=== PATIENT | male | born 1980 | race Caucasian/White ===

== ENCOUNTER → 2016-11-26 | Outpatient (CLI) | payer BC ==
[2016-11-26 14:52] VITALS: BP 129/74; PULSE 74; RESP 16; TEMP 98.8; BMI 40.6
[2016-11-26 16:01] LABS: CH 29.8; CHCM 33.9; HCT 48.7 % (39.0-53.0); HGB 16.1 gm/dL (13.0-17.5); MCH 29.2 pg (25.0-35.0); MCV 88.3 fL (80.0-100.0); Mean Platelet Volume 7.5; RBC 5.51 m/uL (4.30-5.90); RDW 14.2 % (11.5-15.5); WBC 5.9 k/uL (3.8-10.6)
[2016-11-26 16:07] LABS: INR 1.1 (<1.1); Partial Thromboplastin Time 23.2 sec (22.0-30.0); Prothrombin Time 11.3 sec (9.0-12.0)
[2016-11-26 16:22] LABS: ALT 107 U/L (21-72); AST 65 U/L (17-59); Alkaline Phosphatase 105 U/L (38-126); Anion Gap 12 mmol/L; Blood Urea Nitrogen 13 mg/dL (9-20); Calcium 9.7 mg/dL (8.4-10.2); Carbon Dioxide 28 mmol/L (22-30); Chloride 103 mmol/L (98-107); Cholesterol 142 mg/dL (<200); Glucose 122 mg/dL (74-99); HDL Cholesterol 37 mg/dL (40-60); Iron 68 ug/dL (49-181); Non-African American GFR(MDRD) >60 (>60 ml/min/1.73 sqM); Phosphorous 3.3 mg/dL (2.5-4.5); Potassium 4.1 mmol/L (3.5-5.1); Sodium 143 mmol/L (137-145); Total Bilirubin 0.6 mg/dL (0.2-1.3); Total Protein 6.7 g/dL (6.3-8.2); Triglycerides 129 mg/dL (<150)
[2016-11-26 16:32] LABS: % Iron Saturation 19.4 % (20-50); Prealbumin 21 mg/dL (18-36); Total Iron Binding Capacity 351 ug/dL (261-462)
[2016-11-26 17:26] LABS: Vitamin B12 740 pg/mL (239-931)
[2016-11-26 19:17] LABS: Hemoglobin A1C 5.2 % (4.2-6.1)
--- NOTE | 2016-11-28 10:23 | PN ---
DATE OF SERVICE: 11/26/2016 CHIEF COMPLAINT: Follow-up sleeve gastrectomy. HISTORY OF PRESENT ILLNESS: Noble Martinez is a 36-year-old gentleman who is status post sleeve gastrectomy on 10/31/2016. He is approximately 3-1/2 weeks out. His highest weight for his 5-foot, 11-inch frame was 317 pounds. His ideal body weight is 178 pounds. Today he comes in weighing 291 pounds. He has lost 26 pounds in approximately 3 weeks. Percent excess weight loss is 19%. Body mass index is reduced from 44.3 down to 40.6. No reports of dysphagia. No reports of nausea, vomiting, with the exception of recent flu. He is tolerating his protein shakes over 90 grams. He does report chronic insomnia and troubles with sleep. He has been followed by a sleep specialist; however, he is due for re-evaluation. PHYSICAL EXAM: VITAL SIGNS: 98.8, 74, 16, 129/74; 5 feet, 11 inches, 291 pounds. Body mass index of 40.6. ABDOMEN: All incisions granulating. No palpable incisional hernias. No signs of infection. MUSCULOSKELETAL: No clubbing, cyanosis, or edema. GENERAL: Well-developed male in no acute distress. HEENT: No scleral icterus. Extraocular movements grossly intact. Moist buccal mucosa. NECK: Supple without lymphadenopathy. CHEST: Nonlabored respirations with equal bilateral excursions. CARDIOVASCULAR: Regular rate and rhythm. NEURO: No focal or lateralizing signs. Cranial nerves 2 through 12 grossly intact. ASSESSMENT: 1. Morbid obesity due to excess calories. 2. Body mass index reduced from 44.3 down to 40.6. 3. Status post sleeve gastrectomy. 4. Dietary surveillance and counseling. PLAN: 1. He reports insomnia that essentially can hurt his weight loss. Recommend evaluation at the sleep specialist. 2. In the interim, will continue with omeprazole for at least 3 months postop for pouch care. 3. Recommend maintain protein intake goal of 90 grams daily. 4. At this time, recommend continued recovery. He will not return to work until complete recovery is achieved. [facility]
[2016-11-29 19:07] LABS: Selenium 104 mcg/L (63-160)
== END | disposition home or self-care (01) ==
LOC: BARWHC3 14:11
PROVIDERS: ATTEND Surgery Plastic and Reconstructive Surgery
DX: Z48.815 Encounter for surgical aftercare following surgery on the digestive system (principal); Z71.3 Dietary counseling and surveillance; E66.01 Morbid (severe) obesity due to excess calories; Z68.41 Body mass index [BMI] 40.0-44.9, adult; Z98.84 Bariatric surgery status; Z79.899 Other long term (current) drug therapy
CPT/HCPCS: 80053; 80061; 82306; 82525; 82607; 82728; 82746; 83036; 83540; 83550; 83735; 83970; 84100; 84134; 84255; 84425; 84443; 84590; 84630; 85027; 85610; 85730; 99211

== ENCOUNTER → 2016-12-10 | Outpatient (CLI) | payer BC ==
[2016-12-10 15:30] VITALS: BP 121/74; PULSE 81; TEMP 97.4; BMI 39.6
--- NOTE | 2016-12-21 13:09 | P.PN ---
Progress Note - Text DATE OF SERVICE: 12/10/2016 CHIEF COMPLAINT: Follow-up sleeve gastrectomy. HISTORY OF PRESENT ILLNESS: Noble Martinez is a 36-year-old gentleman status post sleeve gastrectomy on 10/31/2016. His highest weight in the programs was 317 pounds. He today comes in weighing 284 pounds. He has maintained a 33-pound weight loss. No reports of nausea or vomiting. No reports of fevers or chills. He reports generalized fatigue. In fact he has history of insomnia. He had seen Dr. Lowe in the sleep center in the past. He is yet to follow up with his primary care provider as well. His body mass index has reduced from 44.3 down to 39.7. PHYSICAL EXAM: VITAL SIGNS: 97.4, 81, 121/74; 5 feet 11 inches, 284 pounds. GENERAL: Well-developed male in no acute distress. ABDOMEN: Soft, nontender. No palpable incisional hernias. No signs of infection. All incisions granulating. MUSCULOSKELETAL: No clubbing, cyanosis, or edema. HEENT: No scleral icterus. Extraocular movements grossly intact. Moist buccal mucosa. NECK: Supple without lymphadenopathy. CHEST: Nonlabored respirations with equal bilateral excursions. CARDIOVASCULAR: Regular rate and rhythm. NEURO: No focal or lateralizing signs. Cranial nerves 2 through 12 grossly intact. LABS: Previous bariatric metabolic panel was reviewed demonstrating hemoglobin normal at 16.1. Glucose was elevated at 122. Hemoglobin A1c was normal at 5.2%. Percent iron saturation was low at 19.4. Ferritin was low at 8. AST and ALT were elevated at 65 [id number] respectively. HDL was low at 37. Vitamin A was low at 30. Trace elements were within normal limits. ASSESSMENT: 1. Morbid obesity due to excess calories. 2. Body mass index reduced from 44.3 down to 39.7. 3. Status post sleeve gastrectomy. 4. Vitamin A deficiency. 5. Dyslipidemia. 6. Insomnia. 7. Dietary surveillance and counseling. PLAN: 1. His liver enzymes were reviewed and consistent with his recent surgery. Will closely evaluate in the interim. 2. He has low vitamin A. We have gone over vitamin A rich foods including vitamin A supplement. He will correct it with his nutrition including multivitamin. 3. He reports insomnia whereby evaluation at the sleep center was advised. 4. He is also due to follow up with his primary care provider. 5. I have recommended a correction of insomnia. This may also alter and effect his moderate weight loss. Thus for in the past 5 weeks he has done exceptionally well already losing over 30 pounds. 6. Recommended followup for January 2017; otherwise in a 3-month cycle.
== END | disposition home or self-care (01) ==
LOC: BARWHC3 14:33
PROVIDERS: ATTEND Surgery Plastic and Reconstructive Surgery
DX: E66.01 Morbid (severe) obesity due to excess calories (principal); Z68.39 Body mass index [BMI] 39.0-39.9, adult; Z09 Encounter for follow-up examination after completed treatment for conditions other than malignant neoplasm; Z90.3 Acquired absence of stomach [part of]; E50.9 Vitamin A deficiency, unspecified; E78.5 Hyperlipidemia, unspecified; G47.00 Insomnia, unspecified; Z71.3 Dietary counseling and surveillance
CPT/HCPCS: 99211

== ENCOUNTER → 2017-01-21 | Outpatient (CLI) | payer BC ==
[2017-01-21 13:18] VITALS: BP 123/76; PULSE 97; RESP 16; TEMP 98.1
[2017-01-21 13:38] VITALS: BMI 37.4
[2017-01-21 14:30] LABS: INR 1.1 (<1.1); Partial Thromboplastin Time 23.4 sec (22.0-30.0); Prothrombin Time 11.1 sec (9.0-12.0)
[2017-01-21 14:35] LABS: CH 30.1; CHCM 33.9; HCT 48.4 % (39.0-53.0); HDW 2.78; HGB 16.5 gm/dL (13.0-17.5); MCH 30.4 pg (25.0-35.0); MCHC 34.2 g/dL (31.0-37.0); Mean Platelet Volume 6.7; RBC 5.44 m/uL (4.30-5.90); RDW 13.6 % (11.5-15.5); WBC 5.1 k/uL (3.8-10.6)
[2017-01-21 14:45] LABS: ALT 60 U/L (21-72); AST 39 U/L (17-59); Alkaline Phosphatase 95 U/L (38-126); Anion Gap 12 mmol/L; Blood Urea Nitrogen 16 mg/dL (9-20); Calcium 10.2 mg/dL (8.4-10.2); Carbon Dioxide 29 mmol/L (22-30); Chloride 102 mmol/L (98-107); Cholesterol 149 mg/dL (<200); Glucose 115 mg/dL (74-99); HDL Cholesterol 42 mg/dL (40-60); Iron 99 ug/dL (49-181); Magnesium 2.2 mg/dL (1.6-2.3); Non-African American GFR(MDRD) >60 (>60 ml/min/1.73 sqM); Phosphorous 3.5 mg/dL (2.5-4.5); Potassium 4.5 mmol/L (3.5-5.1); Sodium 143 mmol/L (137-145); Total Bilirubin 0.7 mg/dL (0.2-1.3); Total Protein 7.2 g/dL (6.3-8.2); Triglycerides 166 mg/dL (<150)
[2017-01-21 14:55] LABS: % Iron Saturation 24.9 % (20-50); Prealbumin 22 mg/dL (18-36); Total Iron Binding Capacity 397 ug/dL (261-462)
[2017-01-21 15:48] LABS: Vitamin B12 706 pg/mL (239-931)
[2017-01-21 18:39] LABS: Hemoglobin A1C 5.3 % (4.2-6.1)
[2017-01-23 18:21] LABS: Selenium 149 mcg/L (63-160)
--- NOTE | 2017-02-21 09:31 | PN ---
DATE OF SERVICE: 01/21/2017. CHIEF COMPLAINT: Follow-up sleeve gastrectomy. HISTORY OF PRESENT ILLNESS: Noble Martinez is a 36-year-old gentleman who is status post sleeve gastrectomy of 10/31/2016. His highest weight was 317 pounds. Today he comes in weighing 284 pounds. His ideal body weight is 178 pounds. He has lost 33 pounds. Body mass index is reduced from 44.3 down to 39.7. Total BMI point reduction is 4.6. Percent excess weight loss is 28%. He denies any gastroesophageal reflux disease. In fact he has discontinued omeprazole. He is not on any medications for his blood pressure. He also reports moderate improvement of his joints. He reports that his highest lifetime weight loss thus far has been 49 pounds. PHYSICAL EXAM: VITAL SIGNS: 98.1, 97, 123/76; 5 feet 11 inches, 284 pounds. GENERAL: Well-developed male in no acute distress. ABDOMEN: Soft, nontender. No palpable incisional hernias. No signs of infection. All incisions granulating. MUSCULOSKELETAL: No clubbing, cyanosis, or edema. HEENT: No scleral icterus. Extraocular movements grossly intact. Moist buccal mucosa. NECK: Supple without lymphadenopathy. CHEST: Nonlabored respirations with equal bilateral excursions. CARDIOVASCULAR: Regular rate and rhythm. NEURO: No focal or lateralizing signs. Cranial nerves 2 through 12 grossly intact. LABS: Reviewed, demonstrating elevated glucose of 115, ferritin low at 6, triglycerides elevated at 156. The rest of bariatric labs are within normal limits. ASSESSMENT: 1. Morbid obesity due to excess calories. 2. Body mass index reduced from 44.3 down to 39.7. 3. Status post sleeve gastrectomy. 4. History of osteoarthritis, improved. 5. Hypertension improved. PLAN: 1. Recommend continued protein intake of over 75 grams daily. 2. May start exercising. 3. Also recommend start multivitamins. 4. Overall he is doing extremely well, already at 120 grams of protein daily. 5. Recommend follow-up in April 2017. [facility]
== END | disposition home or self-care (01) ==
LOC: BARWHC3 13:00
PROVIDERS: ATTEND Surgery Plastic and Reconstructive Surgery
DX: Z48.815 Encounter for surgical aftercare following surgery on the digestive system (principal); E66.01 Morbid (severe) obesity due to excess calories; Z68.39 Body mass index [BMI] 39.0-39.9, adult; Z71.3 Dietary counseling and surveillance; Z98.84 Bariatric surgery status; M19.90 Unspecified osteoarthritis, unspecified site; I10 Essential (primary) hypertension; E21.1 Secondary hyperparathyroidism, not elsewhere classified; E89.1 Postprocedural hypoinsulinemia; D50.8 Other iron deficiency anemias; E44.0 Moderate protein-calorie malnutrition; E55.9 Vitamin D deficiency, unspecified; K74.1 Hepatic sclerosis; N19 Unspecified kidney failure; K50.90 Crohn's disease, unspecified, without complications
CPT/HCPCS: 80053; 80061; 82306; 82525; 82607; 82728; 82746; 83036; 83540; 83550; 83735; 83970; 84100; 84134; 84255; 84425; 84443; 84590; 84630; 85027; 85610; 85730; 99211

== ENCOUNTER 2019-04-25 22:05 | Observation (INO) | payer BC ==
[2019-04-25] MEDS ORDERED: SODIUM CHLORIDE 0.9% 1,000 ML IV STA (22:38)
[2019-04-25] MEDS ORDERED: IOPAMIDOL-300 CONTRAST 30 ML VIAL (ORAL USE) PO PRN (22:38)
[2019-04-25] MEDS ORDERED: FAMOTIDINE 20 MG/2 ML VIAL IV STA (23:02)
[2019-04-25] MEDS ORDERED: ONDANSETRON 4 MG/2 ML VIAL IVP STA (23:15)
[2019-04-25 23:28] LABS: Appearance,Urine Clear (Clear); Bilirubin,Urine Negative (Negative); Blood,Urine Negative (Negative); Color,Urine Yellow; Glucose,Urine (UA) Negative (Negative); Ketones,Urine Negative (Negative); Leukocyte Esterase,Urine Negative (Negative); Nitrite,Urine Negative (Negative); Protein,Urine Negative (Negative); Specific Gravity,Urine 1.012 (1.001-1.035); Urobilinogen,Urine <2.0 mg/dL (<2.0)
[2019-04-25 23:37] LABS: Basophils % (A) 0 %; Eosinophils # (A) 0.1 k/uL (0-0.7); Eosinophils % (A) 1 %; HCT 43.1 % (39.0-53.0); HGB 14.2 gm/dL (13.0-17.5); Lymphocytes # (A) 0.7 k/uL (1.0-4.8); Lymphocytes % (A) 6 %; MCH 29.1 pg (25.0-35.0); MCHC 32.9 g/dL (31.0-37.0); MCV 88.6 fL (80.0-100.0); Mean Platelet Volume 7.7; Monocytes # (A) 0.5 k/uL (0-1.0); Monocytes % (A) 4 %; Neutrophils # (A) 9.6 k/uL (1.3-7.7); Neutrophils % (A) 88 %; Platelet Count 225 k/uL (150-450); RBC 4.87 m/uL (4.30-5.90)
[2019-04-25 23:40] LABS: ALT 33 U/L (21-72); AST 25 U/L (17-59); African American GFR (CKD) >90 (>60 ml/min/1.73 sqM); Albumin 3.8 g/dL (3.5-5.0); Alkaline Phosphatase 76 U/L (38-126); Anion Gap 6 mmol/L; Blood Urea Nitrogen 14 mg/dL (9-20); Calcium 8.2 mg/dL (8.4-10.2); Carbon Dioxide 22 mmol/L (22-30); Chloride 111 mmol/L (98-107); Glucose 93 mg/dL (74-99); Lipase 90 U/L (23-300); Potassium 4.4 mmol/L (3.5-5.1); Sodium 139 mmol/L (137-145); Total Bilirubin 0.7 mg/dL (0.2-1.3); Total Protein 6.3 g/dL (6.3-8.2)
--- NOTE | 2019-04-25 23:49 | CT ---
EXAM: CT Abdomen and Pelvis With Intravenous Contrast CLINICAL HISTORY: ITS.REASON CT Reason: abdominal pain TECHNIQUE: Axial computed tomography images of the abdomen and pelvis with intravenous contrast. This CT exam was performed using one or more of the following dose reduction techniques: automated exposure control, adjustment of the mA and/or kV according to patient size, and/or use of iterative reconstruction technique. COMPARISON: No relevant prior studies available. FINDINGS: Lung bases: Unremarkable. No mass. No consolidation. ABDOMEN: Liver: Unremarkable. No mass. Gallbladder and bile ducts: No abnormal ductal dilation or stones. Pancreas: Unremarkable. No mass. No ductal dilation. Spleen: Unremarkable. No splenomegaly. Adrenals: Unremarkable. No mass. Kidneys and ureters: Unremarkable. No solid mass. No hydronephrosis. Stomach and bowel: Dense stool within a mildly distended rectum, possibly indicating impaction. PELVIS: Appendix: No findings to suggest acute appendicitis. Bladder: Unremarkable. No mass. Reproductive: Unremarkable as visualized. ABDOMEN and PELVIS: Intraperitoneal space: Unremarkable. No free air. No significant fluid collection. Bones/joints: No acute fracture. No dislocation. Soft tissues: Unremarkable. Vasculature: No abdominal aortic aneurysm. Lymph nodes: Unremarkable. No enlarged lymph nodes. IMPRESSION: Dense stool within a mildly distended rectum, possibly indicating impaction.
--- NOTE | 2019-04-26 00:50 | ED ---
General Adult HPI <Jairo Donahue - Last Filed: 04/26/19 00:51> - General Source: patient, EMS, RN notes reviewed, old records reviewed Mode of arrival: EMS Limitations: no limitations <Jonnathan Gutierrez - Last Filed: 04/26/19 04:08> - General Chief complaint: GI Bleed Stated complaint: NVD Time Seen by Provider: 04/25/19 22:38 - History of Present Illness Initial comments: 38-year-old male patient past medical history of gastric sleeve and approximately 2016 presents to ED after having episode of epigastric abdominal pain followed by nausea vomiting and diarrhea. Patient course the had approximately 2 episodes of emesis. Patient does report that he had some streaks of bright red blood in emesis. Patient also reports that it appeared that in his diarrhea and he had some dark red blood in it as well. Patient sees at some mild epigastric pain since. Patient denies any other complaints this ti me. Patient denies any recent blood thinners. Denies any chest pain shortness of breath fevers or chills Systemic: Pt denies fatigue, fever/chills, rash. Pt denies weakness, night sweats, weight loss. Neuro: Pt denies headache, visual disturbances, syncope or pre-syncope. HEENT: Pt denies ocular discharge or irritation, otalgia, rhinorrhea, pharyngitis or notable lymphadenopathy. Cardiopulmonary: Pt denies chest pain, SOB, heart palpitations, dyspnea on exertion. Abdominal/GI: Pt denies abdominal pain, n/v/d. : Pt denies dysuria, burning w/ urination, frequency/urgency. Denies new onset urinary or bowel incontinence. MSK: Pt denies myalgia, loss of strength or function in extremities. Neuro: Pt denies new onset weakness, paresthesias. (Jonnathan Gutierrez) - Related Data Home Medications Medication Instructions Recorded Confirmed Multivitamin [Multivitamins Adult 1 tab PO DAILY 01/21/17 04/25/19 Gummies] Indomethacin [Indocin] 50 mg PO DAILY PRN 04/25/19 04/25/19 Temazepam [Restoril] 15 mg PO HS PRN 04/25/19 04/25/19 Allergies Allergy/AdvReac Type Severity Reaction Status Date / Time fentanyl AdvReac Unknown Verified 04/26/19 03:18 hydrocodone bitartrate AdvReac nausea/vomi Verified 04/25/19 22:48 [From Vicodin] ting morphine AdvReac Anaphylaxis Verified 04/25/19 22:48 Review of Systems ROS Other: All systems not noted in ROS Statement are negative. <Jairo Donahue - Last Filed: 04/26/19 00:51> ROS Other: All systems not noted in ROS Statement are negative. <Jonnathan Gutierrez - Last Filed: 04/26/19 04:08> ROS Statement: Those systems with pertinent positive or pertinent negative responses have been documented in the HPI. Past Medical History Past Medical History: GERD/Reflux, Hypertension Additional Past Medical History / Comment(s): Hx Migraine Headaches. Had hypertension in the past but has resolved-no meds at this time, Hiatal hernia discovered 05/28/16 w/EGD History of Any Multi-Drug Resistant Organisms: None Reported Past Surgical History: Adenoidectomy, Bariatric Surgery, Joint Replacement Additional Past Surgical History / Comment(s): left knee surgery 08/23. rupture gallbladder 2010, eye surgery to correct strabismus, (EGD on 05/28/16: dx is hiatal hernia and GERD. H-pylori negative), gastric sleeve 10/2016 Past Anesthesia/Blood Transfusion Reactions: No Reported Reaction Past Psychological History: Anxiety Smoking Status: Never smoker Past Alcohol Use History: None Reported Past Drug Use History: None Reported - Past Family History Father Family Medical History: Cancer, Dementia, Hypertension Additional Family Medical History / Comment(s): prostate Mother Family Medical History: Cancer Additional Family Medical History / Comment(s): brain aneurysm, breast cancer ( 2013) Sister(s) Family Medical History: Cancer Additional Family Medical History / Comment(s): breast <Jonnathan Gutierrez - Last Filed: 04/26/19 04:08> General Exam Limitations: no limitations <Jonnathan Gutierrez - Last Filed: 04/26/19 04:08> - General Exam Comments Initial Comments: Constitutional: NAD, AOX3, Pt has pleasant affect. HEENT: NC/AT, trachea midline, neck supple, no lymphadenopathy. Posterior pharynx non erythematous, without exudates. External ears appear normal, without discharge. Mucous membranes moist. Eyes PERRLA, EOM intact. There is no scleral icterus. No pallor noted. Cardiopulmonary: RRR, no murmurs, rubs or gallops, no JVD noted. Lungs CTAB in anterior and posterior longoria. No peripheral edema. Abdominal exam: Abdomen soft and non-distended. Abdomen mildly tender to palpa tion epigastric region. No guarding or rigidity no ecchymoses. No other areas of abdominal tenderness.. Bowel sounds active in LLQ. No hepatosplenomegaly. No ecchymosis Neuro: CN II-XII grossly intact. No nuchal rigidity. No raccon eyes, no anderson sign, no hemotympanum. No cervical spinal tenderness. MSK: No posterior calf tenderness bilaterally, homans sign negative bilaterally. Posterior tibialis and radial pulse +2 bilaterally. Sensation intact in upper and lower extremities. Full active ROM in upper and lower extremities, 5/5 stregnth. (Jonnathan Gutierrez) Course Vital Signs 04/25/19 04/26/19 04/26/19 22:08 00:11 02:18 Temperature 98.4 F 98 F Pulse Rate 77 80 68 Pulse Rate [ Pulse Oximetery ] Respiratory 18 18 18 Rate Blood Pressure 137/94 124/87 120/74 Blood Pressure [Right Arm] O2 Sat by Pulse 98 96 97 Oximetry 04/26/19 03:00 Temperature 98.8 F Pulse Rate Pulse Rate [ 77 Pulse Oximetery ] Respiratory 16 Rate Blood Pressure Blood Pressure 123/78 [Right Arm] O2 Sat by Pulse 98 Oximetry Medical Decision Making - Lab Data Result diagrams: 04/25/19 23:10 04/25/19 23:10 <Jairo Donahue - Last Filed: 04/26/19 00:51> - Lab Data Result diagrams: 04/25/19 23:10 04/25/19 23:10 <Jonnathan Gutierrez - Last Filed: 04/26/19 04:08> - Medical Decision Making Chart reviewed. Case was discussed with Dr. Quarles, who will keep patient for observation for Dr. Erickson. (Jairo Donahue) 38-year-old male patient past medical history of gastric sleeve and approximately 2016 presents to ED after having episode of epigastric abdominal pain followed by nausea vomiting and diarrhea. Patient course the had approximately 2 episodes of emesis. Patient does report that he had some streaks of bright red blood in emesis. Patient also reports that it appeared that in his diarrhea and he had some dark red blood in it as well. Patient sees at some mild epigastric pain since. Patient denies any other complaints this time. Patient denies any recent blood thinners. Denies any chest pain shortness of breath fevers or chills. Patient also stable, afebrile. Physical exam displayed mild epigastric tenderness. Laboratory investigations revealed mild lekocytosis of 11.0. Prevacid. Lipase within normal limits. UA negative. CT abdomen and pelvis with oral contrast displayed an stool with a mild dist ended rectum. Possible indicating impaction. Hemoccult blood pending. Patient will be admitted for surgery consult. Case discussed in depth with Dr. Donahue and rehabilitation services aide surgeon Dr. Wray. (Jonnathan Gutierrez) - Lab Data Lab Results 04/25/19 04/25/19 04/25/19 Range/Units 23:10 23:10 23:10 WBC 11.0 H (3.8-10.6) k/uL RBC 4.87 (4.30-5.90) m/uL Hgb 14.2 (13.0-17.5) gm/dL Hct 43.1 (39.0-53.0) % MCV 88.6 (80.0-100.0) fL MCH 29.1 (25.0-35.0) pg MCHC 32.9 (31.0-37.0) g/dL RDW 14.0 (11.5-15.5) % Plt Count 225 (150-450) k/uL Neutrophils % 88 % Lymphocytes % 6 % Monocytes % 4 % Eosinophils % 1 % Basophils % 0 % Neutrophils # 9.6 H (1.3-7.7) k/uL Lymphocytes # 0.7 L (1.0-4.8) k/uL Monocytes # 0.5 (0-1.0) k/uL Eosinophils # 0.1 (0-0.7) k/uL Basophils # 0.0 (0-0.2) k/uL Sodium 139 (137-145) mmol/L Potassium 4.4 (3.5-5.1) mmol/L Chloride 111 H (98-107) mmol/L Carbon Dioxide 22 (22-30) mmol/L Anion Gap 6 mmol/L BUN 14 (9-20) mg/dL Creatinine 1.04 (0.66-1.25) mg/dL Est GFR (CKD-EPI)AfAm >90 (>60 ml/min/1.73 sqM) Est GFR (CKD-EPI)NonAf >90 (>60 ml/min/1.73 sqM) Glucose 93 (74-99) mg/dL Plasma Lactic Acid Jared 1.0 (0.7-2.0) mmol/L Calcium 8.2 L (8.4-10.2) mg/dL Total Bilirubin 0.7 (0.2-1.3) mg/dL AST 25 (17-59) U/L ALT 33 (21-72) U/L Alkaline Phosphatase 76 (38-126) U/L Total Protein 6.3 (6.3-8.2) g/dL Albumin 3.8 (3.5-5.0) g/dL Lipase 90 (23-300) U/L Urine Color Urine Appearance (Clear) Urine pH (5.0-8.0) Ur Specific [place] (1.001-1.035) Urine Protein (Negative) Urine Glucose (UA) (Negative) Urine Ketones (Negative) Urine Blood (Negative) Urine Nitrite (Negative) Urine Bilirubin (Negative) Urine Urobilinogen (<2.0) mg/dL Ur Leukocyte Esterase (Negative) Stool Occult Blood (Negative) 04/25/19 04/26/19 Range/Units 23:10 00:35 WBC (3.8-10.6) k/uL RBC (4.30-5.90) m/uL Hgb (13.0-17.5) gm/dL Hct (39.0-53.0) % MCV (80.0-100.0) fL MCH (25.0-35.0) pg MCHC (31.0-37.0) g/dL RDW (11.5-15.5) % Plt Count (150-450) k/uL Neutrophils % % Lymphocytes % % Monocytes % % Eosinophils % % Basophils % % Neutrophils # (1.3-7.7) k/uL Lymphocytes # (1.0-4.8) k/uL Monocytes # (0-1.0) k/uL Eosinophils # (0-0.7) k/uL Basophils # (0-0.2) k/uL Sodium (137-145) mmol/L Potassium (3.5-5.1) mmol/L Chloride (98-107) mmol/L Carbon Dioxide (22-30) mmol/L Anion Gap mmol/L BUN (9-20) mg/dL Creatinine (0.66-1.25) mg/dL Est GFR (CKD-EPI)AfAm (>60 ml/min/1.73 sqM) Est GFR (CKD-EPI)NonAf (>60 ml/min/1.73 sqM) Glucose (74-99) mg/dL Plasma Lactic Acid Jared (0.7-2.0) mmol/L Calcium (8.4-10.2) mg/dL Total Bilirubin (0.2-1.3) mg/dL AST (17-59) U/L ALT (21-72) U/L Alkaline Phosphatase (38-126) U/L Total Protein (6.3-8.2) g/dL Albumin (3.5-5.0) g/dL Lipase (23-300) U/L Urine Color Yellow Urine Appearance Clear (Clear) Urine pH 7.0 (5.0-8.0) Ur Specific [place] 1.012 (1.001-1.035) Urine Protein Negative (Negative) Urine Glucose (UA) Negative (Negative) Urine Ketones Negative (Negative) Urine Blood Negative (Negative) Urine Nitrite Negative (Negative) Urine Bilirubin Negative (Negative) Urine Urobilinogen <2.0 (<2.0) mg/dL Ur Leukocyte Esterase Negative (Negative) Stool Occult Blood Positive (Negative) Disposition <Jairo Donahue - Last Filed: 04/26/19 00:51> Is patient prescribed a controlled substance at d/c from ED?: No <Jonnathan Gutierrez - Last Filed: 04/26/19 04:08> Clinical Impression: GI bleed Disposition: ADMITTED IP TO THIS HOSP Condition: Serious
[2019-04-26] MEDS ORDERED: NALOXONE 0.4 MG/ML 1 ML VIAL IV PRN (01:27)
[2019-04-26] MEDS ORDERED: ONDANSETRON 4 MG/2 ML VIAL IVP PRN (01:27)
[2019-04-26] MEDS: SODIUM CHLORIDE 0.9% 1,000 ML IV SCH ×3 (01:37→20:37)
[2019-04-26] MEDS ORDERED: PANTOPRAZOLE 40 MG/10 ML VIAL IVP ONE (01:44)
[2019-04-26] MEDS ORDERED: POLYETHYLENE GLYCOL LYTES SOLN 4,000 ML SOLN.RECON PO ONE (09:11)
--- NOTE | 2019-04-26 09:11 | P.GSCN ---
History of Present Illness Consult date: 04/26/19 Reason for Consult: GI BLEED History of present illness: Patient known to me from previous sleeve gastrectomy 2 years ago. He reports taking indocin for migraines and was not taking omeprazole for over 1 month. He reports dark red stools. He also had abdominal pain. He has been lost to follow up for over 2 years. Recommend EGD and colonoscopy scheduled for tomorrow. Past Medical History Past Medical History: GERD/Reflux, Hypertension Additional Past Medical History / Comment(s): Hx Migraine Headaches. Had hypertension in the past but has resolved-no meds at this time, Hiatal hernia discovered 05/28/16 w/EGD History of Any Multi-Drug Resistant Organisms: None Reported Past Surgical History: Adenoidectomy, Bariatric Surgery, Joint Replacement Additional Past Surgical History / Comment(s): left knee surgery 08/23. rupture gallbladder 2010, eye surgery to correct strabismus, (EGD on 05/28/16: dx is hiatal hernia and GERD. H-pylori negative), gastric sleeve 10/2016 Past Anesthesia/Blood Transfusion Reactions: No Reported Reaction Past Psychological History: Anxiety Smoking Status: Never smoker Past Alcohol Use History: None Reported Past Drug Use History: None Reported - Past Family History Father Family Medical History: Cancer, Dementia, Hypertension Additional Family Medical History / Comment(s): prostate Mother Family Medical History: Cancer Additional Family Medical History / Comment(s): brain aneurysm, breast cancer ( 2013) Sister(s) Family Medical History: Cancer Additional Family Medical History / Comment(s): breast Medications and Allergies Home Medications Medication Instructions Recorded Confirmed Type Multivitamin [Multivitamins Adult 1 tab PO DAILY 01/21/17 04/25/19 History Gummies] Indomethacin [Indocin] 50 mg PO DAILY PRN 04/25/19 04/25/19 History Temazepam [Restoril] 15 mg PO HS PRN 04/25/19 04/25/19 History Allergies Allergy/AdvReac Type Severity Reaction Status Date / Time fentanyl AdvReac Unknown Verified 04/26/19 03:18 hydrocodone bitartrate AdvReac nausea/vomi Verified 04/25/19 22:48 [From Vicodin] ting morphine AdvReac Anaphylaxis Verified 04/25/19 22:48 Surgical - Exam Vital Signs Temp Pulse Resp BP Pulse Ox 98.4 F 77 18 137/94 98 04/25/19 22:08 04/25/19 22:08 04/25/19 22:08 04/25/19 22:08 04/25/19 22:08 Results - Labs 04/25/19 23:10 04/25/19 23:10 Abnormal Lab Results - Last 24 Hours (Table) 04/25/19 04/25/19 Range/Units 23:10 23:10 WBC 11.0 H (3.8-10.6) k/uL Neutrophils # 9.6 H (1.3-7.7) k/uL Lymphocytes # 0.7 L (1.0-4.8) k/uL Chloride 111 H (98-107) mmol/L Calcium 8.2 L (8.4-10.2) mg/dL Diabetes panel 04/25/19 Range/Units 23:10 Sodium 139 (137-145) mmol/L Potassium 4.4 (3.5-5.1) mmol/L Chloride 111 H (98-107) mmol/L Carbon Dioxide 22 (22-30) mmol/L BUN 14 (9-20) mg/dL Creatinine 1.04 (0.66-1.25) mg/dL Glucose 93 (74-99) mg/dL Calcium 8.2 L (8.4-10.2) mg/dL AST 25 (17-59) U/L ALT 33 (21-72) U/L Alkaline Phosphatase 76 (38-126) U/L Total Protein 6.3 (6.3-8.2) g/dL Albumin 3.8 (3.5-5.0) g/dL Calcium panel 04/25/19 Range/Units 23:10 Calcium 8.2 L (8.4-10.2) mg/dL Albumin 3.8 (3.5-5.0) g/dL Pituitary panel 04/25/19 Range/Units 23:10 Sodium 139 (137-145) mmol/L Potassium 4.4 (3.5-5.1) mmol/L Chloride 111 H (98-107) mmol/L Carbon Dioxide 22 (22-30) mmol/L BUN 14 (9-20) mg/dL Creatinine 1.04 (0.66-1.25) mg/dL Glucose 93 (74-99) mg/dL Calcium 8.2 L (8.4-10.2) mg/dL Adrenal panel 04/25/19 Range/Units 23:10 Sodium 139 (137-145) mmol/L Potassium 4.4 (3.5-5.1) mmol/L Chloride 111 H (98-107) mmol/L Carbon Dioxide 22 (22-30) mmol/L BUN 14 (9-20) mg/dL Creatinine 1.04 (0.66-1.25) mg/dL Glucose 93 (74-99) mg/dL Calcium 8.2 L (8.4-10.2) mg/dL Total Bilirubin 0.7 (0.2-1.3) mg/dL AST 25 (17-59) U/L ALT 33 (21-72) U/L Alkaline Phosphatase 76 (38-126) U/L Total Protein 6.3 (6.3-8.2) g/dL Albumin 3.8 (3.5-5.0) g/dL
[2019-04-26] MEDS: LACTATED RINGERS 1,000 ML IV SCH (10:53)
[2019-04-26] MEDS ORDERED: SUMAtriptan SUCCINATE 50 MG TAB PO STA (16:41)
[2019-04-26] MEDS ORDERED: TEMAZEPAM 15 MG CAP PO PRN (18:21)
--- NOTE | 2019-04-26 20:00 | HP ---
HISTORY AND PHYSICAL CHIEF COMPLAINT: Abdominal pain. HISTORY OF PRESENT ILLNESS: This 38-year-old gentleman with a past medical history of multiple medical problems including previous sleeve gastrectomy over [address] Alcantar as well as GERD, hypertension, history of migraine, history of bariatric surgery, history of anxiety being followed by Dr. Butterfield in the outpatient setting was recently was started on indomethacin and Topamax by a neurologist for migraine type of headaches. The patient is rather constipated. Last night the patient was complaining of severe abdominal pain which was radiating from side to side and to the back area also. The patient came to came to [facility] and was admitted for further evaluation and treatment. The patient also has 2 episodes of vomiting and some red streaks in the emesis also noted. The dark red blood was noted in the stool also. The patient admitted to the hospital for further evaluation and treatment. There is no history of fever, rigors or chills. No history of headache. No seizures. Abdomen and pelvis CAT scan was done which showed dense stool within the mildly distended rectum possibly indicating impaction. After medications, patient did have a good bowel movement with some relief in the pain. There is no history of fever, rigors, chills at this time. PAST MEDICAL HISTORY: GERD, hypertension, migraine headaches, adenoidectomy, bariatric surgery, anxiety. MEDICATIONS: Prior to admission include home medications: 1. Restoril 15 mg q.h.s. p.r.n. 2. Multivitamins one p.o. daily. 3. Indocin 50 mg daily p.r.n. ALLERGIES: VICODIN AND MORPHINE. FAMILY HISTORY: History of cancer, dementia, hypertension, prostate disease. SOCIAL HISTORY: No history of smoking. No history of alcohol. REVIEW OF SYSTEMS: ENT: No diminished vision. No diminished hearing. CARDIOVASCULAR: No angina or palpitations. RESPIRATORY: As mentioned earlier. GI no nausea or vomiting. no dysuria or hematuria. NERVOUS SYSTEM: No numbness or weakness. ALLERGY/IMMUNOLOGY: No asthma or hayfever. MUSCULOSKELETAL as mentioned earlier. HEMATOLOGY/ONCOLOGY: No history of anemia. ENDOCRINE: No history of diabetes or hypothyroid. CONSTITUTIONAL: As mentioned earlier. DERMATOLOGY: Negative. RHEUMATOLOGY: Negative. PSYCHIATRY: As mentioned earlier. PHYSICAL EXAMINATION: Alert and oriented times three. Pulse 74, pressure 117/79, respiration 20, temperature 98.5, pulse ox 98% on room air. HEENT: Conjunctivae normal. Oral mucosa moist. NECK is no jugular venous distention. No carotid bruit. No lymph node enlargement. CARDIOVASCULAR system: S1, S2 muffled. RESPIRATORY: Breath sounds diminished in the bases. No rhonchi. No crackles. ABDOMEN: Soft, mild diffuse discomfort on palpation. No guarding. No rigidity. No mass palpable. No tenderness. No ascites. Flanks are on percussion. Otherwise, no mass palpable. LEGS: No edema. No swelling. NERVOUS SYSTEM: Higher functions as mentioned earlier. Moves all 4 limbs. No focal motor or sensory deficits. LYMPHATICS: No lymph nodes palpable in the neck, axilla or groin. SKIN: No ulcer, rashes or bleeding. JOINTS: No active deforming arthropathy. LAB STUDIES: WBC 11, sodium 130, potassium 4.4. ASSESSMENT: 1. Abdominal pain for evaluation, possible constipation. 2. Vomiting, possible acute gastritis. 3. Possible bleeding per rectum for evaluation. 4. History of gastric sleeve surgery. 5. Increased WBC of undetermined etiology. 6. History of gastroesophageal reflux disease. 7. Hypertension. 8. History of migraine headaches. 9. History of hypertension which resolved. 10.History of bariatric surgery. 11.History of left knee surgery. 12.Degenerative joint disease. 13.History of gallbladder rupture. 14.History of anxiety. 15.FULL CODE. RECOMMENDATIONS AND DISCUSSION: This 38-year-old gentleman who presented with multiple medical problems, at this time, I recommend to continue current medications, management and symptomatic treatment. Otherwise, proton pump inhibitors. Otherwise, I would also recommend closely follow up with Dr. Alcantar the surgeon with possible EGD and colonoscopy. Further recommendations to follow. Home medications will be reconciled. Prognosis guarded. Further recommendations to follow. Will hold the NSAIDS. A copy of dictation being forwarded to Dr. Butterfield who is the primary physician. MMODL / IJN: [id number] / JAMILAH
[2019-04-26] MEDS: PANTOPRAZOLE 40 MG/10 ML VIAL IVP SCH (20:35)
[2019-04-27] MEDS: SODIUM CHLORIDE 0.9% 1,000 ML IV SCH ×2 (05:39→12:28)
[2019-04-27] MEDS: PANTOPRAZOLE 40 MG/10 ML VIAL IVP SCH (07:51)
[2019-04-27] MEDS ORDERED: MULTIVITAMINS, THERA 1 EACH TAB PO SCH (09:00)
[2019-04-27] MEDS ORDERED: SUMAtriptan SUCCINATE 50 MG TAB PO STA (09:42)
[2019-04-27 10:18] LABS: Basophils % (A) 0 %; Eosinophils # (A) 0.1 k/uL (0-0.7); Eosinophils % (A) 2 %; HCT 44.1 % (39.0-53.0); HGB 14.4 gm/dL (13.0-17.5); Lymphocytes # (A) 1.5 k/uL (1.0-4.8); Lymphocytes % (A) 17 %; MCH 30.1 pg (25.0-35.0); MCHC 32.7 g/dL (31.0-37.0); MCV 92.2 fL (80.0-100.0); Mean Platelet Volume 7.3; Monocytes # (A) 0.5 k/uL (0-1.0); Monocytes % (A) 6 %; Neutrophils # (A) 6.3 k/uL (1.3-7.7); Neutrophils % (A) 74 %; Platelet Count 223 k/uL (150-450); RBC 4.79 m/uL (4.30-5.90); RDW 13.8 % (11.5-15.5); WBC 8.6 k/uL (3.8-10.6)
[2019-04-27 10:31] LABS: African American GFR (CKD) >90 (>60 ml/min/1.73 sqM); Anion Gap 9 mmol/L; Blood Urea Nitrogen 8 mg/dL (9-20); Calcium 8.7 mg/dL (8.4-10.2); Carbon Dioxide 21 mmol/L (22-30); Chloride 111 mmol/L (98-107); Glucose 74 mg/dL (74-99); Potassium 3.6 mmol/L (3.5-5.1); Sodium 141 mmol/L (137-145)
[2019-04-27] MEDS ORDERED: LIDOCAINE 1% INJ 10MG/ML (20 ML MDV) ONE (10:36)
[2019-04-27] MEDS ORDERED: HYDROmorphone (PF) 1 MG/ML ONE (10:36)
[2019-04-27] MEDS ORDERED: PROPOFOL 10 MG/ML 20 ML VIAL IV ONE (10:36)
[2019-04-27] MEDS ORDERED: IV FLUID CONTINUATION 1,000 ML IV ONE (10:40)
[2019-04-27 11:00] VITALS: RESP 16
[2019-04-27] MEDS ORDERED: LACTATED RINGERS 1,000 ML IV ONE (11:12)
--- NOTE | 2019-04-27 11:17 | P.PCN ---
Date of Procedure: 04/27/19 Description of Procedure: PREOPERATIVE DIAGNOSIS: History of gastrointestinal bleed History of sleeve gastrectomy. Gastroesophageal reflux disease. POSTOPERATIVE DIAGNOSIS: History of gastrointestinal bleed History of sleeve gastrectomy. Gastroesophageal reflux disease. Erosive esophagitis, chronic. Diaphragmatic hiatal hernia without obstruction. Chronic superficial gastritis with superficial gastric ulcers without active bleeding OPERATION: Esophagogastroduodenoscopy SURGEON: Mary Alcantar MD ANESTHESIA: MAC. INDICATIONS: The patient is a 38-year-old male who presents with a history of sleeve gastrectomy, abdominal pain, and gastrointestinal bleeding. He is over 2 years out from his bariatric procedure. Benefits and risks of the procedure were described. Informed consent was obtained. DESCRIPTION: The patient was brought into the endoscopy suite and laid in the left lateral decubitus position. An Olympus gastroscope was passed along the posterior oropharynx down to the distal esophagus where the squamocolumnar junction was at 38 centimeters from the incisors remarkable for chronic erosive esophagitis, LA grade C without ulceration. Chronic gastritis with superficial gastric ulcer without bleeding was identified along the antrum. The first through third portion of the duodenum was examined and unremarkable. The scope was retroflexed along the antrum. The stomach was desufflated. The patient tolerated the procedure well. FINDINGS: Chronic gastritis with superficial gastric ulcer without active bleeding No corkscrewing sleeve gastrectomy. Squamocolumnar junction at 38 cm from the incisors. Diaphragmatic hiatus at 40 cm. Gastric reservoir within normal limits LA grade C erosive esophagitis. No active duodenitis or duodenal ulcers RECOMMENDATIONS: Upper endoscopy as needed. Portion pump inhibitor
--- NOTE | 2019-04-27 11:23 | P.PCN ---
Date of Procedure: 04/27/19 Description of Procedure: PREOPERATIVE DIAGNOSIS: Gastrointestinal bleeding History rectal bleeding POSTOPERATIVE DIAGNOSIS: Gastrointestinal bleeding History rectal bleeding Internal hemorrhoid, grade 3 with recent inflammation Mid transverse colon polyp Proctitis with inflammation without active bleeding OPERATION: Colonoscopy to the ileocecal valve and appendiceal orifice. Colonoscopy with hot snare polypectomy SURGEON: Mary Alcantar MD. ANESTHESIA: MAC. INDICATIONS: The patient is a 38-year-old male who presents with gastrointestinal bleed including rectal bleeding and abdominal pain in the last 24 hours to 48. Benefits and risks were described and informed consent was obtained. DESCRIPTION OF PROCEDURE: The patient had undergone Nulytely prep, 2-L. He had been brought into the operating room and laid in the left lateral decubitus position. After adequate intravenous sedation, the rectum was examined with 2% lidocaine jelly. The prostate was unremarkable. No prolapsed external hemorrhoids were encountered. The rectal tone was within normal limits. No lesions were palpated in the rectal vault. An Olympus colonoscope was advanced until the ileocecal valve and appendiceal orifice were clearly viewed. The prep was fair with visualization of the mucosal folds. The scope was removed with visualization of each mucosal fold. No scattered diverticulosis was encountered. A 5 mm flat villous adenoma of the transverse colon was snare polypectomy. Focal proctitis was found. Retroflexion of the scope demonstrated grade 2 internal hemorrhoids with inflammation. The colon was desufflated. The patient had tolerated the procedure well. Withdrawal time was over 6 minutes. FINDINGS: Aronchick preparation quality scale 2 (1-5) Internal hemorrhoids, grade 3 with recent inflammation No external hemorrhoids No arteriovenous malformations No scattered diverticulosis Focal proctitis was found. Removal of 1 polyp: - Snare polypectomy at mid-transverse colon, 5 mm polyp. No active GI bleeding identified with presumed bleeding from proctitis and internal hemorrhoids RECOMMENDATIONS: Lower endoscopy as needed Plan - Discharge Summary Discharge Rx Participant: No New Discharge Prescriptions: No Action Multivitamin [Multivitamins Adult Gummies] 1 tab PO DAILY Temazepam [Restoril] 15 mg PO HS PRN PRN Reason: Insomnia Indomethacin [Indocin] 50 mg PO DAILY PRN PRN Reason: Headache Discharge Medication List Multivitamin [Multivitamins Adult Gummies] 1 tab PO DAILY 01/21/17 [History] Indomethacin [Indocin] 50 mg PO DAILY PRN 04/25/19 [History] Temazepam [Restoril] 15 mg PO HS PRN 04/25/19 [History] Follow up Appointment(s)/Referral(s): Dominguez Butterfield MD [REFERRING] - 1-2 days
[2019-04-27] MEDS ORDERED: SODIUM CHLORIDE 0.9% 2,000 ML IV ONE (11:31)
--- NOTE | 2019-04-27 11:31 | P.PN ---
Progress Note - Text Progress Note Date: 04/27/19 Patient has history of sleeve gastrectomy including adequate protein intake. Recommend complete bariatric metabolic panel including zinc, copper, selenium, PT INR, vitamin A, vitamin D, vitamin B1, vitamin B12, folate, parathyroid hormone, iron panel. Also recommend IV fluid bolus. May start regular diet. Recommend discharge home with Protonix.
[2019-04-27 12:20] LABS: INR 1.1 (<1.2); Prothrombin Time 11.2 sec (9.0-12.0)
[2019-04-27 12:27] VITALS: PULSE 81; TEMP 97.8
[2019-04-27] MEDS: LACTATED RINGERS 1,000 ML IV SCH (12:27)
[2019-04-27 12:34] VITALS: BP 124/72
--- NOTE | 2019-04-27 21:22 | DS ---
DISCHARGE SUMMARY DATE OF SERVICE: 04/27/2019. FINAL DIAGNOSES: 1. Abdominal pain for evaluation, possible proctitis with internal hemorrhoids. 2. Lower gastrointestinal bleeding secondary to above. 3. Vomiting, possible acute gastritis. 4. History of gastric sleeve surgery. 5. Increased WBC of undetermined etiology. 6. History of gastroesophageal reflux disease. 7. Hypertension. 8. History of migraine headaches. 9. History of hypertension, resolved. 10.History of bariatric surgery. 11.History of left knee surgery. 12.Degenerative joint disease. 13.History of gallbladder rupture. 14.History of anxiety. 15.FULL CODE. DISCHARGE DISPOSITION: The patient will be discharged in stable condition with guarded prognosis. The patient discharged cleared by Dr. Alcantar. HISTORY OF PRESENT ILLNESS: This 38-year-old gentleman with a past medical history of multiple medical problems as mentioned earlier being followed by Dr. Butterfield in the outpatient setting had abdominal pain. The patient also had constipation, diarrhea also. The patient was treated conservatively. EGD and colonoscopy was done. Colonoscopy showed possible proctitis. Biopsies taken. Dr. Alcantar recommend the patient to be discharged in the outpatient setting and continue to monitor. On exam, vital signs are stable. Cardiovascular: S1, S2. Respiration: No rhonchi. Abdomen is soft, nontender. No mass palpable. The patient will be discharged in stable condition with guarded prognosis. DISCHARGE ADVICE AND MEDICATIONS: 1. Discharge diet is soft, low residue. 2. Activity limited until follow up. 3. Follow up with Dr. Butterfield in two to three days. 4. Follow up with Dr. Alcantar as advised for biopsy reports. DISCHARGE MEDICATIONS: 1. Multivitamins 1 daily. 2. Restoril 15 mg q.h.s. p.r.n. 3. Omeprazole 40 mg p.o. daily. Once again the patient is being discharged in stable condition with guarded prognosis. MMODL / IJN: [id number] /
[2019-04-28 12:43] LABS: Zinc, Serum 72 ug/dL (60-130)
[2019-04-29 19:14] LABS: Selenium 108 mcg/L (63-160)
[2019-05-02 12:05] LABS: Vitamin K 0.91 nmol/L (0.22-4.88)
== END 2019-04-27 16:25 | disposition home or self-care (01) ==
LOC: EC 22:05 → 4MS4W 04-26 00:50
PROVIDERS: ADMIT Hospitalist; ATTEND Hospitalist
DX: R10.13 Epigastric pain (principal); K64.2 Third degree hemorrhoids; R11.2 Nausea with vomiting, unspecified; R19.7 Diarrhea, unspecified; K63.5 Polyp of colon; K29.30 Chronic superficial gastritis without bleeding; K25.9 Gastric ulcer, unspecified as acute or chronic, without hemorrhage or perforation; K59.00 Constipation, unspecified; K20.8 Other esophagitis; K21.9 Gastro-esophageal reflux disease without esophagitis; I10 Essential (primary) hypertension; G43.909 Migraine, unspecified, not intractable, without status migrainosus; K44.9 Diaphragmatic hernia without obstruction or gangrene; F41.9 Anxiety disorder, unspecified; D72.829 Elevated white blood cell count, unspecified; M19.90 Unspecified osteoarthritis, unspecified site; K62.89 Other specified diseases of anus and rectum; Z87.19 Personal history of other diseases of the digestive system; Z79.1 Long term (current) use of non-steroidal anti-inflammatories (NSAID); Z79.899 Other long term (current) drug therapy; Z88.5 Allergy status to narcotic agent; Z96.60 Presence of unspecified orthopedic joint implant; Z98.84 Bariatric surgery status; Z82.49 Family history of ischemic heart disease and other diseases of the circulatory system; Z80.42 Family history of malignant neoplasm of prostate; Z80.3 Family history of malignant neoplasm of breast; Z81.8 Family history of other mental and behavioral disorders
CPT/HCPCS: 96361; 96374; 96375; 99285; 36415 ×2; 84255; 84597; 82652; 88305; 84425; 80053; 80048; 82525; 83605; 83690; 84590; 84630; 85025 ×2; 85610; 82272; 81003; 74177; 45385; 43235; G0378 ×2; J2405; J2001; J1170; J2704; C9113 ×2; Q9967

== ENCOUNTER 2020-11-30 15:19 | Emergency (ER) | payer OTHER ==
[2020-11-30] MEDS ORDERED: SODIUM CHLORIDE 0.9% 1,000 ML IV ONE (15:26)
[2020-11-30 15:29] VITALS: RESP 18; TEMP 98
--- NOTE | 2020-11-30 15:50 | ED ---
General Adult HPI - General Chief complaint: Recheck/Abnormal Lab/Rx Stated complaint: Med reaction Time Seen by Provider: 11/30/20 15:20 Source: patient, EMS Mode of arrival: EMS Limitations: no limitations - History of Present Illness Initial comments: Patient is a 40-year-old male past medical history of hypertension, seizure disorder and migraines who presents emergency department with reported altered mental status. Patient was pulled over by police as he was swerving inbewtween his lanes. They did find the patient to be overtly sedated. He states that he took Ambien around 8 AM. He is to be on this medication for approximately 1 year however couldn't afford the prescription and went off of it. Reports that he recently obtained a new prescription for the medication and began taking it this morning. He works afternoons for the police department. States that he left the house to be to work by 3. Denies taking any other substances to include alcohol and illicit drugs. No recent head trauma. Denies unilateral numbness or weakness. Denies any headaches or visual changes. States that he hasn't slept and has had issues with sleep patterns for several years. Patient was not involved in any accidents. Please are not accompanying the patient. No other alleviating, Perceptin or modifying factors - Related Data Home Medications Medication Instructions Recorded Confirmed Escitalopram [Lexapro] 20 mg PO DAILY 11/30/20 11/30/20 Omeprazole 20 mg PO BID 11/30/20 11/30/20 Topiramate 50 mg PO BID 11/30/20 11/30/20 Zolpidem Tartrate [Ambien] 5 - 10 mg PO HS PRN 11/30/20 11/30/20 levETIRAcetam [Keppra] 250 mg PO Q12HR 11/30/20 11/30/20 Allergies Allergy/AdvReac Type Severity Reaction Status Date / Time fentanyl AdvReac Unknown Verified 11/30/20 15:28 hydrocodone bitartrate AdvReac nausea/vomi Verified 11/30/20 15:28 [From Vicodin] ting morphine AdvReac Anaphylaxis Verified 11/30/20 15:28 Review of Systems ROS Statement: Those systems with pertinent positive or pertinent negative responses have been documented in the HPI. ROS Other: All systems not noted in ROS Statement are negative. Past Medical History Past Medical History: GERD/Reflux, Hypertension, Seizure Disorder Additional Past Medical History / Comment(s): Hx Migraine Headaches. Had hypertension in the past but has resolved-no meds at this time, Hiatal hernia discovered 05/28/16 w/EGD History of Any Multi-Drug Resistant Organisms: None Reported Past Surgical History: Adenoidectomy, Bariatric Surgery, Joint Replacement Additional Past Surgical History / Comment(s): left knee surgery 08/23. rupture gallbladder 2010, eye surgery to correct strabismus, (EGD on 05/28/16: dx is hiatal hernia and GERD. H-pylori negative), gastric sleeve 10/2016 Past Anesthesia/Blood Transfusion Reactions: No Reported Reaction Past Psychological History: Anxiety Smoking Status: Never smoker Past Alcohol Use History: None Reported Past Drug Use History: None Reported - Past Family History Father Family Medical History: Cancer, Dementia, Hypertension Additional Family Medical History / Comment(s): prostate Mother Family Medical History: Cancer Additional Family Medical History / Comment(s): brain aneurysm, breast cancer ( 2013) Sister(s) Family Medical History: Cancer Additional Family Medical History / Comment(s): breast General Exam Limitations: altered mental status General appearance: appears intoxicated Head exam: Present: atraumatic, normocephalic, normal inspection Eye exam: Present: normal appearance, PERRL, EOMI. Absent: scleral icterus, conjunctival injection, periorbital swelling ENT exam: Present: normal exam, mucous membranes moist Neck exam: Present: normal inspection. Absent: tenderness, meningismus, lymphadenopathy Respiratory exam: Present: normal lung sounds bilaterally. Absent: respiratory distress, wheezes, rales, rhonchi, stridor GI/Abdominal exam: Present: soft, normal bowel sounds. Absent: distended, tenderness, guarding, rebound, rigid Neurological exam: Present: altered Psychiatric exam: Present: flat affect Course Vital Signs 11/30/20 11/30/20 15:21 17:35 Temperature 98.0 F 98.0 F Pulse Rate 74 78 Respiratory 18 18 Rate Blood Pressure 132/93 138/88 O2 Sat by Pulse 98 100 Oximetry EKG Findings - EKG Comments: EKG Findings:: EKG demonstrates normal sinus rhythm with a ventricular rate of 73. NH interval 142. QRS 94. QTC of 469. No acute ST segment elevations or depressions Medical Decision Making - Medical Decision Making Upon arrival patient was placed into room 1. A thorough history and physical exam was performed. Patient is able to answer questions appropriately and follow commands. He does appear overly sedated. He recommended laboratory studies and a CT of his head. He does allow for a workup. Laboratory studies revealed that the patient's urine is positive for methamphetamines states she's also been taking Sudafed for sleep. Patient's CT of his brain demonstrates no acute intracranial hemorrhage or midline shift. Patient was observed in the emergency department for 2 and half hours. He does become more arousable. I discussed diagnosis and treatment options. Patient will be discharged home at this time. Instructed not to drive while taking Ambien. Follow up with his primary care physician in regards to other medications he can take. Patient understood this. Given written and verbal discharge instructions and discharged home ambulatory in stable condition - Lab Data Result diagrams: 11/30/20 15:37 11/30/20 15:37 Lab Results 11/30/20 11/30/20 11/30/20 Range/Units 15:37 15:37 15:37 WBC 5.9 (3.8-10.6) k/uL RBC 4.98 (4.30-5.90) m/uL Hgb 15.6 (13.0-17.5) gm/dL Hct 44.4 (39.0-53.0) % MCV 89.3 (80.0-100.0) fL MCH 31.3 (25.0-35.0) pg MCHC 35.0 (31.0-37.0) g/dL RDW 13.3 (11.5-15.5) % Plt Count 205 (150-450) k/uL MPV 7.4 Neutrophils % 61 % Lymphocytes % 27 % Monocytes % 8 % Eosinophils % 2 % Basophils % 0 % Neutrophils # 3.6 (1.3-7.7) k/uL Lymphocytes # 1.6 (1.0-4.8) k/uL Monocytes # 0.5 (0-1.0) k/uL Eosinophils # 0.1 (0-0.7) k/uL Basophils # 0.0 (0-0.2) k/uL Sodium 139 (137-145) mmol/L Potassium 3.7 (3.5-5.1) mmol/L Chloride 110 H (98-107) mmol/L Carbon Dioxide 21 L (22-30) mmol/L Anion Gap 8 mmol/L BUN 9 (9-20) mg/dL Creatinine 1.07 (0.66-1.25) mg/dL Est GFR (CKD-EPI)AfAm >90 (>60 ml/min/1.73 sqM) Est GFR (CKD-EPI)NonAf 87 (>60 ml/min/1.73 sqM) Glucose 96 (74-99) mg/dL Calcium 9.1 (8.4-10.2) mg/dL Total Bilirubin 0.5 (0.2-1.3) mg/dL AST 32 (17-59) U/L ALT 42 (4-49) U/L Alkaline Phosphatase 79 (38-126) U/L Total Protein 7.3 (6.3-8.2) g/dL Albumin 4.4 (3.5-5.0) g/dL Urine Color Yellow Urine Appearance Turbid (Clear) Urine pH 7.0 (5.0-8.0) Ur Specific [place] 1.024 (1.001-1.035) Urine Protein Negative (Negative) Urine Glucose (UA) Negative (Negative) Urine Ketones Negative (Negative) Urine Blood Negative (Negative) Urine Nitrite Negative (Negative) Urine Bilirubin Negative (Negative) Urine Urobilinogen 2.0 (<2.0) mg/dL Ur Leukocyte Esterase Negative (Negative) Urine RBC 1 (0-5) /hpf Urine WBC 3 (0-5) /hpf Amorphous Sediment Rare H (None) /hpf Urine Mucus Rare H (None) /hpf Salicylates <1.0 mg/dL Urine Opiates Screen Not Detected (NotDetected) Ur Oxycodone Screen Not Detected (NotDetected) Urine Methadone Screen Not Detected (NotDetected) Ur Propoxyphene Screen Not Detected (NotDetected) Acetaminophen <10.0 ug/mL Ur Barbiturates Screen Not Detected (NotDetected) U Tricyclic Antidepress Not Detected (NotDetected) Ur Phencyclidine Scrn Not Detected (NotDetected) Ur Amphetamines Screen Not Detected (NotDetected) U Methamphetamines Scrn Detected H (NotDetected) U Benzodiazepines Scrn Not Detected (NotDetected) Urine Cocaine Screen Not Detected (NotDetected) U Marijuana (THC) Screen Not Detected (NotDetected) Serum Alcohol <10 mg/dL Disposition Clinical Impression: Altered mental status, Ambien use disorder, mild, Impaired driving skills Disposition: HOME SELF-CARE Condition: Stable Instructions (If sedation given, give patient instructions): Altered Mental Status (ED) Additional Instructions: You should only take the Ambien if you have 8 hours to sleep. Do not take it and then drive. Do not use any other illicit substances. Speak with your doctor about other medications you can use for sleep Is patient prescribed a controlled substance at d/c from ED?: No Referrals: Doimnguez Butterfield MD [Primary Care Provider] - 1-2 days Time of Disposition: 17:36
[2020-11-30 16:24] LABS: Basophils % (A) 0 %; Eosinophils # (A) 0.1 k/uL (0-0.7); Eosinophils % (A) 2 %; HCT 44.4 % (39.0-53.0); HGB 15.6 gm/dL (13.0-17.5); Lymphocytes # (A) 1.6 k/uL (1.0-4.8); Lymphocytes % (A) 27 %; MCH 31.3 pg (25.0-35.0); MCV 89.3 fL (80.0-100.0); Mean Platelet Volume 7.4; Monocytes # (A) 0.5 k/uL (0-1.0); Monocytes % (A) 8 %; Neutrophils # (A) 3.6 k/uL (1.3-7.7); Neutrophils % (A) 61 %; Platelet Count 205 k/uL (150-450); RBC 4.98 m/uL (4.30-5.90); RDW 13.3 % (11.5-15.5); WBC 5.9 k/uL (3.8-10.6)
--- NOTE | 2020-11-30 16:35 | CT ---
EXAMINATION TYPE: CT brain wo con DATE OF EXAM: 11/30/2020 COMPARISON: CT brain February 14, 2010. HISTORY: Altered mental status CT DLP: 1157.4 mGycm. Automated Exposure Control for Dose Reduction was Utilized. TECHNIQUE: CT scan of the head is performed without contrast. FINDINGS: There is no acute intracranial hemorrhage, mass effect, or midline shift identified. The ventricles and sulci are within normal limits in size. Marroquin-white matter differentiation is maintain ed. Slightly low-lying cerebellar tonsils but not greater than 5 mm inferior displacement. Similar fi nding to prior. The globes are intact and the visualized sinuses are clear. IMPRESSION: No acute intracranial hemorrhage or midline shift is seen. No significant change from pr ior.
[2020-11-30 16:38] LABS: ALT 42 U/L (4-49); AST 32 U/L (17-59); Acetaminophen <10.0 ug/mL; African American GFR (CKD) >90 (>60 ml/min/1.73 sqM); Albumin 4.4 g/dL (3.5-5.0); Alcohol <10 mg/dL; Alkaline Phosphatase 79 U/L (38-126); Anion Gap 8 mmol/L; Blood Urea Nitrogen 9 mg/dL (9-20); Calcium 9.1 mg/dL (8.4-10.2); Carbon Dioxide 21 mmol/L (22-30); Chloride 110 mmol/L (98-107); Glucose 96 mg/dL (74-99); Non-African American GFR(CKD) 87 (>60 ml/min/1.73 sqM); Potassium 3.7 mmol/L (3.5-5.1); Salicylate <1.0 mg/dL; Sodium 139 mmol/L (137-145); Total Bilirubin 0.5 mg/dL (0.2-1.3); Total Protein 7.3 g/dL (6.3-8.2)
[2020-11-30 16:43] LABS: Amorphous Sediment,Urine Rare /hpf; Appearance,Urine Turbid (Clear); Bilirubin,Urine Negative (Negative); Blood,Urine Negative (Negative); Color,Urine Yellow; Glucose,Urine (UA) Negative (Negative); Ketones,Urine Negative (Negative); Leukocyte Esterase,Urine Negative (Negative); Mucus,Urine Rare /hpf; Nitrite,Urine Negative (Negative); Protein,Urine Negative (Negative); RBC,Urine 1 /hpf (0-5); Specific Gravity,Urine 1.024 (1.001-1.035); WBC,Urine 3 /hpf (0-5)
[2020-11-30 16:44] LABS: Amphetamine Screen,Urine Not Detected (NotDetected); Barbiturate Screen,Urine Not Detected (NotDetected); Benzodiazepines Screen,Urine Not Detected (NotDetected); Cocaine Screen,Urine Not Detected (NotDetected); Methadone Screen, Urine Not Detected (NotDetected); Opiate Screen,Urine Not Detected (NotDetected); Oxycodone Screen, Urine Not Detected (NotDetected); Phencyclidine Screen,Urine Not Detected (NotDetected); Tricyclic Antidepressant,Urine Not Detected (NotDetected); Urn Cannabinoid Scrn Not Detected (NotDetected)
[2020-11-30 17:36] VITALS: BP 138/88; PULSE 78
== END 2020-11-30 17:44 | disposition home or self-care (01) ==
LOC: EC 15:19
DX: F13.10 Sedative, hypnotic or anxiolytic abuse, uncomplicated (principal); R41.82 Altered mental status, unspecified; Z78.9 Other specified health status; I10 Essential (primary) hypertension; K21.9 Gastro-esophageal reflux disease without esophagitis; G40.909 Epilepsy, unspecified, not intractable, without status epilepticus; F41.9 Anxiety disorder, unspecified; Z79.899 Other long term (current) drug therapy; Z88.5 Allergy status to narcotic agent; Z88.6 Allergy status to analgesic agent; Z98.84 Bariatric surgery status
CPT/HCPCS: 36415; 70450; 80053; 80143; 80306; 80320; 80329; 81001; 85025; 93005; 96360; 99285